=== PATIENT | female | born 1935 | race Caucasian/White ===

== ENCOUNTER 2016-11-25 15:30 | Outpatient (CLI) | payer MEDICARE ==
[~2016-11-25] VITALS: Ht 165.1 cm; Wt 51.7 kg
[2016-11-25] MEDS ORDERED: TRAM50TA2 PO (15:32)
[2016-11-25] MEDS ORDERED: AMLO5TAB2 PO (15:32)
[2016-11-25] MEDS ORDERED: LEVO25TA5 PO (15:32)
[2016-11-25] MEDS ORDERED: HYDR12.5 PO (15:32)
== END 2016-11-25 15:39 ==
LOC: PREOP 15:30
PROVIDERS: ATTEND Orthopaedic Surgery Orthopaedic Surgery of the Spine
DX: Z01.818 Encounter for other preprocedural examination (principal)

== ENCOUNTER 2016-11-26 06:55 | Day surgery (SDC) | payer MEDICARE, OTHER ==
[~2016-11-26] VITALS: Ht 165.1 cm; Wt 51.7 kg
[~2016-11-26 06:55] MED LIST: AMLO5TAB2 PO; HYDR12.5 PO; LEVO25TA5 PO; TRAM50TA2 PO
--- OUTSIDE RECORDS SUMMARY | 2016-11-26 06:59 | XMS REPORT | Continuity of Care Document ---
Author Author [facility] Organization [facility] Address Unknown Phone Unavailable Care Team Providers Care Cotton Jammer Name Role Phone NO, LOCAL PHYSICIAN PCP Unavailable Insurance Providers Payer Name Policy Number Subscriber Name Relationship s Medicare [id number] Rebeka Paiz 16 Self / Same As Patient Advance Directives Directive Response Recorded Date/Time Advance Directives No 11/25/16 3:24pm Health Care Power of Circle Shear Operator No 11/25/16 3:24pm Resuscitation Status Full Code 11/25/16 3:24pm Problems No problem information available. Medications Current Home Medications Medication Dose Units Route Directions Days/Qty Instructions Start Date Amlodipine Besylate 5 Mg 5 Mg Oral Daily 11/25/16 Hydrochlorothiazide 12.5 Mg 12.5 Mg Oral Daily 11/25/16 Levothyroxine Sodium 25 Mcg 25 Mcg Oral Daily 11/25/16 Tramadol Hcl 50 Mg 50 Mg Oral Every 4HRS as needed for Pain 11/25/16 Social History Social History Problem Response Recorded Date/Time Alcohol Use Denies Use 11/25/2016 3:24pm Recreational Drug Use No 11/25/2016 3:24pm Recent Foreign Travel No 11/25/2016 3:23pm Recent Infectious Disease Exposure No 11/25/2016 3:23pm Sexually Transmitted Disease Yes 11/25/2016 3:24pm HIV/AIDS No 11/25/2016 3:24pm Smoking Status Never a Smoker 11/25/2016 3:24pm Recent Hopitalizations No 11/25/2016 3:24pm Sexually Transmitted Disease Yes 11/25/2016 3:24pm Query Response Start Date Stop Date Smoking Status Never a Smoker Hospital Discharge Instructions No hospital discharge instructions. Plan of Care Discharge Date 11/25/16 3:39pm Prescriptions See Medication Section Functional Status No functional status results. Allergies, Adverse Reactions, Alerts No known allergies. Immunizations No immunization records. Vital Signs Acute Vital Signs Vital Response Date/Time Height (Feet) 5 feet 11/25/2016 3:22pm Height (Inches) 5.00 inches 11/25/2016 3:22pm Height (Calculated Centimeters) 165.113361 cm 11/25/2016 3:22pm Weight (Pounds) 114 pounds 11/25/2016 3:22pm Weight (Ounces) 0.0 oz 11/25/2016 3:22pm Weight (Calculated Grams) 33654.53 gm 11/25/2016 3:22pm Weight (Calculated Kilograms) 51.522725 kilograms 11/25/2016 3:22pm Calculated BMI 19.0 11/25/2016 3:22pm Results No known relevant diagnostic tests, laboratory data and/or discharge summary. Procedures No known history of procedures. Encounters Encounter Location Arrival/Admit Date Discharge/Depart Date Attending Provider Registered Clinic [facility] 11/25/16 3:30pm LEXIE TAM MD
--- OUTSIDE RECORDS SUMMARY | 2016-11-26 07:01 | XMS REPORT | Continuity of Care Document ---
Author Author [facility] Organization [facility] Address Unknown Phone Unavailable Care Team Providers Care Binding Nicker Name Role Phone NO, LOCAL PHYSICIAN PCP Unavailable Insurance Providers Payer Name Policy Number Subscriber Name Relationship s Medicare [id number] Rebeka Paiz 16 Self / Same As Patient Advance Directives Directive Response Recorded Date/Time Advance Directives No 11/25/16 3:24pm Health Care Power of Orthopedic Cast Specialist No 11/25/16 3:24pm Resuscitation Status Full Code [...] 5.00 inches 11/25/2016 3:22pm Height (Calculated Centimeters) 165.405907 cm 11/25/2016 3:22pm Weight (Pounds) 114 pounds 11/25/2016 3:22pm Weight (Ounces) 0.0 oz 11/25/2016 3:22pm Weight (Calculated Grams) 74822.53 gm 11/25/2016 3:22pm Weight (Calculated Kilograms) 51.447836 kilograms 11/25/2016 3:22pm Calculated BMI 19.0 11/25/2016 3:22pm Results No known relevant diagnostic tests, laboratory data and/or discharge summary. Procedures No known history of procedures. Encounters Encounter Location Arrival/Admit Date Discharge/Depart Date Attending Provider Registered Clinic [facility] 11/25/16 3:30pm LEXIE TAM MD
[2016-11-26] MEDS ORDERED: ceFAZolin 2 GM IV (SDC ONLY) 50 ML ONE (07:17)
[2016-11-26] MEDS ORDERED: LACTATED RINGERS 1,000 ML IV PRN (07:21)
[2016-11-26] MEDS ORDERED: BUP/EPI 0.25% 1:200,000 (MARCAINE) 30 ML VIAL ONE (07:27)
[2016-11-26] MEDS ORDERED: ceFAZolin 2 GM IV (SDC ONLY) 50 ML IV ONE (07:30)
[2016-11-26] MEDS ORDERED: fentaNYL INJECTION 100 MCG/2 ML AMP ONE (07:51)
[2016-11-26] MEDS ORDERED: proPOfol 200 MG/20 ML (DIPRIVAN) VIAL IV ONE (07:51)
[2016-11-26] MEDS ORDERED: LACTATED RINGERS 1,000 ML IV ONE (07:51)
[2016-11-26] MEDS ORDERED: ROCURONIUM 50 MG/5 ML (ZEMURON) VIAL IV ONE (07:51)
[2016-11-26] MEDS ORDERED: SEVOFLURANE (ULTANE) 15 ML INHAL SOLN ONE ×3 (07:51→09:21)
[2016-11-26] MEDS ORDERED: DEXAMETHASONE PF 10 MG/ML (DECADRON) VIAL ONE (07:51)
[2016-11-26] MEDS ORDERED: ONDANSETRON 4 MG/2 ML (SDV) Z0FRAN ONE (07:51)
[2016-11-26] MEDS ORDERED: LIDOCAINE PF 2% 10 ML (XYLOCAINE) AMP ONE (07:51)
[2016-11-26 07:55] VITALS: BP 165/86
[2016-11-26] MEDS ORDERED: MILK OF MAGNESIA 400 MG/5 ML 30 ML UDC PO PRN (08:30)
[2016-11-26] MEDS ORDERED: HYDROcodone/APAP 5 MG/325 MG (LORTAB) TAB PO PRN (08:30)
[2016-11-26] MEDS ORDERED: morphine INJ 5 MG/ML 1 ML VIAL IVP PRN (08:30)
[2016-11-26] MEDS ORDERED: ONDANSETRON 4 MG/2 ML (SDV) Z0FRAN IV PRN (08:30)
[2016-11-26] MEDS ORDERED: diphenhydrAMINE 25 MG TAB (BENADRYL) PO PRN (08:30)
[2016-11-26] MEDS ORDERED: ACETAMINOPHEN 325 MG TABLET/CAPLET (TYLENOL) PO PRN (08:30)
[2016-11-26] MEDS ORDERED: BISACODYL 5 MG (DULCOLAX) TABLET PO PRN (08:30)
[2016-11-26] MEDS ORDERED: PHENYLEPHRINE 100 MCG/ML 10 ML (ANESTHESIA) SYR ONE (08:37)
[2016-11-26] MEDS ORDERED: NEOSTIGMINE (BLOXIVERZ ) 1 MG/1ML 10 ML VIAL ONE (09:19)
[2016-11-26] MEDS ORDERED: GLYCOPYRROLATE 0.2 MG/ML (ROBINUL) 2 ML VIAL ONE (09:19)
--- NOTE | 2016-11-26 09:25 | Progress Note-Post Operative ---
Post-Operative Progess Note Bi Analyst Charli Wang, MADAI Pre-Operative Diagnosis Compression Fractures Post-Operative Diagnosis same Post-Op Procedure Note Date of Procedure: Nov 26, 2016 Name of Procedure: T12, L1, L2, L3, L4 kyphoplasty Procedure Note/Findings compression fx Anesthesia Type GETA Estimated blood loss (mL): 100 Specimen(s) collected T12 biopsy LEXIE TAM MD Nov 26, 2016 9:25 am
[2016-11-26] MEDS: morphine INJ 10 MG/ML 1ML (SYR OR VIAL) IVP PRN ×3 (09:58→10:07)
[2016-11-26] MEDS ORDERED: MEPERIDINE (DEMEROL) INJ 50 MG/ML IVP PRN (10:00)
[2016-11-26] MEDS ORDERED: ONDANSETRON 4 MG/2 ML (SDV) Z0FRAN IVP PRN (10:00)
[2016-11-26 10:55] VITALS: BP 173/81
[2016-11-26] MEDS: NS IV 1000 ML 1,000 ML IV SCH ×2 (10:58→20:56)
[2016-11-26 12:30] VITALS: BP 162/79
[2016-11-26] MEDS: DOCUSATE SODIUM 100 MG (COLACE) CAP PO SCH ×2 (13:27→20:56)
[2016-11-26] MEDS: FAMOTIDINE 20 MG (PEPCID) TABLET PO SCH ×2 (13:27→20:56)
[2016-11-26] MEDS: ceFAZolin INJECTION 1,000 MG in NS (IVPB) 50 ML IV SCH ×2 (13:28→20:55)
[2016-11-26] MEDS ORDERED: FLU TRIvalent (5 YOA+) 2016-17 (AFLURIA) 0.5 ML IM ONE (14:30)
[2016-11-26 16:19] VITALS: BP 155/70
[2016-11-26 19:00] VITALS: BP 128/69
[2016-11-26] MEDS ORDERED: NORMAL SALINE (BAXTER MINI) 50 ML IV ONE (20:25)
[2016-11-26] MEDS ORDERED: ceFAZolin 1,000 MG (ANCEF) VIAL ONE (20:25)
[2016-11-27] VITALS: BP 144/76
[2016-11-27] MEDS: NS IV 1000 ML 1,000 ML IV SCH (01:13)
[2016-11-27 04:00] VITALS: BP 132/70
[2016-11-27] MEDS ORDERED: ceFAZolin 1,000 MG (ANCEF) VIAL ONE (04:51)
[2016-11-27] MEDS ORDERED: NORMAL SALINE (BAXTER MINI) 50 ML IV ONE (04:51)
[2016-11-27] MEDS: ceFAZolin INJECTION 1,000 MG in NS (IVPB) 50 ML IV SCH (05:09)
--- NOTE | 2016-11-27 05:31 | Progress Note (SOAP) ---
Subjective Subjective/Events-last exam POD #1 s/p T12-L4 kyphoplasty No complaints Back pain has improved. Review of Systems Gastrointestinal: No: Nausea Musculoskeletal: No: back pain Neurological: No: Numbness, Weakness Objective Exam Vital Signs Date Time Temp Pulse Resp B/P Pulse Ox O2 Delivery O2 Flow Rate FiO2 11/27/16 04:00 98.5 98 20 132/70 96 Nasal Cannula 2.00 11/27/16 00:00 98.6 103 20 144/76 97 Nasal Cannula 2.00 11/26/16 20:50 96 Nasal Cannula 2.00 11/26/16 19:00 97.4 94 14 128/69 96 11/26/16 16:19 97.4 100 16 155/70 96 11/26/16 12:30 98.3 92 16 162/79 96 Nasal Cannula 2.00 11/26/16 11:00 Nasal Cannula 2.00 11/26/16 10:55 97.8 115 20 173/81 98 Nasal Cannula 2.00 11/26/16 07:55 98.8 101 16 165/86 100 Room Air I & O 11/27/16 07:00 Intake Total 3200 ml Output Total 2300 ml Balance 900 ml Capillary Refill : General Appearance: No Apparent Distress Respiratory: Normal Breath Sounds Cardiovascular: Regular Rate, Rhythm Extremity: Normal Capillary Refill Skin: Normal Color Warm/Dry Other (dressing cdi) Lymphatic: No Adenopathy Assessment/Plan Assessment/Plan Assess & Plan/Chief Complaint T12-L4 kyphoplasty osteoporosis dc home Diagnosis/Problems: Clinical Quality Measures DVT/VTE Risk/Contraindication: Risk Factor Score Per Nursin RFS Level Per Nursing on Admit: 4+=Very High DEMETRIUS VALADEZ Nov 27, 2016 05:31
[2016-11-27] MEDS ORDERED: MULTIVIT W/MINERALS TAB (THERAGRAN M) PO SCH (07:00)
[2016-11-27 08:00] VITALS: BP 129/67
--- NOTE | 2016-11-27 08:16 | Anesthesia-General Post-Op ---
General Patient Condition Mental Status/LOC: Same as Preop Cardiovascular: Satisfactory Nausea/Vomiting: Absent Respiratory: Satisfactory Pain: Controlled Complications: Absent Post Op Complications Complications None Follow Up Care/Instructions Patient Instructions None needed. Anesthesia/Patient Condition Patient Condition Patient is doing well, no complaints, stable vital signs, no apparent adverse anesthesia problems. No complications reported per nursing. D/C home per [facility] Criteria: NATI Motley DO Nov 27, 2016 08:16
[2016-11-27] MEDS: DOCUSATE SODIUM 100 MG (COLACE) CAP PO SCH (08:56)
[2016-11-27] MEDS: FAMOTIDINE 20 MG (PEPCID) TABLET PO SCH (08:57)
--- NOTE | 2016-11-27 09:16 | Physical Therapy Evaluation ---
PT Evaluation-General Medical Diagnosis Admission Date 2016 Medical Diagnosis: compression fractures Onset Date: Nov 26, 2016 Therapy Diagnosis Therapy Diagnosis: debility from compression fractures Height/Weight Height (Feet): 5 Height (Inches): 5.00 Weight (Pounds): 114 Weight (Ounces): 0.0 Precautions Precautions/Isolations: Fall Prevention, Standard Precautions Referral Physician: Mary Reason for Referral: Evaluation/Treatment Medical History Additional Medical History osteoporosis; denies fall Current History s/p T12-L4 kyphoplasty Social History Home: Single Level Current Living Status: Spouse Prior/Core FIM Prior Level of Function Functional Potter Measure 0=Not Assessed/NA 4=Minimal Assistance 1=Total Assistance 5=Supervision or Setup 2=Maximal Assistance 6=Modified Potter 3=Moderate Assistance 7=Complete Potter Bed Mobility: 7 Transfers (B,C,W/C) (FIM): 7 Gait: 7 PT Evaluation-Current Subjective Patient agrees to PT. No c/o at this time. Pain Numeric Pain Scale: 5-Moderate Pain Location: Lower Location Body Site: Back Pain Description: Ache Pt/Family Goals return to home today Objective Patient Orientation: Normal For Age Problem Solving: Good Attachments: IV ROM/Strength ROM Lower Extremities bilateral LE WFL Strenght Lower Extremities bilateral LE WFL Integumentary/Posture Integumentary refer to nursing notes Bowel Incontinence: No Bladder Incontinence: No Posture kyphosis and scoliosis Neuromuscular (Tone, Coordination, Reflexes) grossly intact Sensory Vision: Functional Hearing: Functional Sensation Right Lower Extremit: Intact Sensation Left Lower Extremity: Intact Transfers Functional Potter Measure 0=Not Assessed/NA 4=Minimal Assistance 1=Total Assistance 5=Supervision or Setup 2=Maximal Assistance 6=Modified Potter 3=Moderate Assistance 7=Complete Potter Transfers (B, C, W/C) (FIM): 6 Scootin Rollin Supine to/from Sit: 6 Sit to/from Stand: 6 modified independent with all tasks Gait Mode of Locomotion: Walk Anticipated Mode of Locomotion: Walk Gait (FIM): 6 Distance (FIM): 3=150 ft Distance: 300' Gait Level of Assist: 6 Gait Assistive Device: FWW Comments/Gait Description safe and functional with FWW Balance Sitting Static: Normal Sitting Dynamic: Normal Standing Static: Normal Standing Dynamic: Normal Assessment/Needs 81 y.o. active female, is currently at maximum LOF with all gross motor skills and is safe to perform all tasks modified independent in room and at home. Patient has established FWW at home. Rehab Potential: Good PT Plan Treatment/Plan Treatment Plan: Discontinue PT, goals met Pt/Family Agrees w/Plan: Yes Safety Risks/Education Patient Education: Safety Issues Teaching Recipient: Patient Teaching Methods: Discussion Response to Teaching: Verbalize Understanding Discharge Recommendations Therapy D/C Recommendations: Home w/ Family Support Time/GCodes Time In: 815 Time Out: 840 Total Billed Treatment Time: 23 Total Billed Treatment 1 visit EVLowC 25 min G Codes Necessary: Yes PT/OT Therapy GCodes Therapy Functional Limitation: Physical Therapy Test(s)/Tool used to determine: Level of Assistance Scale Functional Limitation-Current Modifier: CI Functional Limitation-Goal Charge Code: LEATHA Modifier: CI Functional Limitation-D/C Charge Codes: MOBDC Modifier: CI BUNNY HINOJOSA PT Nov 27, 2016 09:16
--- NOTE | 2016-11-27 09:28 | OPERATIVE REPORT ---
PROCEDURE PHYSICIAN: LEXIE TAM DATE OF PROCEDURE: 11/26/2016 PREOPERATIVE DIAGNOSIS: Thoracic and lumbar osteoporotic pathologic compression fracture POSTOPERATIVE DIAGNOSIS: Thoracic and lumbar osteoporotic pathologic compression fracture. PROCEDURE PERFORMED: 1. T12 kyphoplasty and biopsy. 2. L1 kyphoplasty. 3. L2 kyphoplasty. 4. L3 kyphoplasty. 5. L4 kyphoplasty all under fluoroscopy. DATE AND TIME OF SURGERY: Please see anesthesia record. SURGEON: Mary COOK HELPER FRUIT: JAM Medrano. Role of multimedia production assistant: Aid in bilateral balloon insufflation, methylmethacrylate insertion. ANESTHESIA: General endotracheal. ESTIMATED BLOOD LOSS: 100 mL. IV FLUIDS: Please see anesthesia record. ANTIBIOTICS: Ancef. COMPLICATIONS: None. INDICATION FOR THE PROCEDURE: Ms. Rabago is an 81-year-old female with progressively intolerable back pain. No specific antecedent trauma, but severe multilevel compression deformities with acute edema on MRI with failure to conservative therapy. DESCRIPTION OF PROCEDURE: The patient was taken to the preoperative holding area and brought back to the operative suite programming. After adequate induction of general anesthesia and preoperative antibiotics, she was carefully turned prone on Charlie table. Careful padding to all extremities. She was sterilely prep and drape of the posterior thoracic lumbar spine. Biplanar fluoroscopy was brought in. Localization at T12, L1, L2, L3 and L4 pedicles were performed and then starting with the T12, L1 and L2 pedicles, working cannulas were placed. Vertebral bodies were biopsied, drilled, ballooned and cavity creation with a bone tamp was utilized and then methylmethacrylate insertion was performed with great fill and interdigitation was achieved. The procedure was then performed at the L3 and L4 levels in a similar manner. Once all 5 levels had been adequately treated, wounds were closed in layers after cannula removal. Final imaging was obtained. The patient tolerated procedure well and was transferred to the recovery room. Job ID: [id number] Dictated Date: 11/26/2016 09:28:00 Sewing Line Baler Date: 11/27/2016 09:21:06 / campos
[2016-11-27 12:00] VITALS: BP 135/67
== END 2016-11-27 14:30 | disposition home or self-care (01) ==
LOC: SDC 06:55 → 4TH 10:57 → SDC 11-27 14:30
PROVIDERS: ATTEND Orthopaedic Surgery Orthopaedic Surgery of the Spine
DX: M80.08XA Age-related osteoporosis with current pathological fracture, vertebra(e), initial encounter for fracture (principal); E03.9 Hypothyroidism, unspecified; I10 Essential (primary) hypertension; Z79.899 Other long term (current) drug therapy
CPT/HCPCS: 87081